=== PATIENT | male | born 1960 | race Caucasian/White ===

== ENCOUNTER → 2017-02-25 | Outpatient (CLI) | payer OTHER ==
--- NOTE | 2017-02-25 15:47 | DIAGNOSTIC IMAGING REPORT ---
LUMBAR SPINE MRI HISTORY: Pain. Neuropathy. BACK PAIN TECHNIQUE: Multiplanar multisequence MRI of the lumbar spine was performed without the use of contrast. COMPARISON: 05/02/2016 FINDINGS: For the purpose of the report the L5-S1 disc space will be located on axial image 27 of 30. Normal signal characteristics of the vertebral bodies as well as intervertebral disc. L1-L2: No significant central canal or neural foraminal narrowing. L2-L3: No significant central canal or neural foraminal narrowing. L3-L4: No significant central canal or neural foraminal narrowing. L4-L5: No significant central canal or neural foraminal narrowing. L5-S1: No significant central canal or neural foraminal narrowing. IMPRESSION: Normal study. No change from the prior exam. Electronically signed by: Terry Rodriguez M.D. 02/25/2017 3:46 PM Dictated Date/Time: 02/25/2017 3:44 PM
== END | disposition home or self-care (01) ==
LOC: C.MRIBC 14:38
PROVIDERS: ATTEND Physician Assistant
DX: M54.9 Dorsalgia, unspecified (principal)

== ENCOUNTER → 2017-04-10 | Outpatient (CLI) | payer OTHER ==
[2017-04-10 13:17] LABS: BASO % 0.6 %; BASO ABS # 0.03 K/uL (0-0.2); COMPLETE YES; EOS % 2.2 %; HEMATOCRIT 48.9 % (42-52); IG% 0.2 %; LYMPH % 33.8 %; LYMPH ABS # 1.69 K/uL (1.2-3.4); MEAN CELL VOLUME 91.9 fL (80-100); MEAN CORPUSCULAR HGB CONC 33.7 g/dl (32-36); MEAN PLATELET VOLUME 9.4 fL (7.4-10.4); NEUT % 54.2 %; PLATELET COUNT 172 K/uL (130-400); RED BLOOD COUNT 5.32 M/uL (4.7-6.1)
[2017-04-10 14:12] LABS: ALKALINE PHOSPHATASE 75 U/L (45-117); ALT/SGPT 129 U/L (12-78); AST/SGOT 52 U/L (15-37); BLOOD UREA NITROGEN 20 mg/dl (7-18); BUN/CREATININE RATIO 18.2 (10-20); CARBON DIOXIDE 29 mmol/L (21-32); CHLORIDE 105 mmol/L (98-107); CHOLESTEROL 156 mg/dl (0-200); GLUCOSE 94 mg/dl (70-99); HDL CHOLESTEROL 39 mg/dl; LDL CHOLESTEROL CALCULATED 91 mg/dl; POTASSIUM 3.9 mmol/L (3.5-5.1); SODIUM 141 mmol/L (136-145); TRIGLYCERIDES 131 mg/dl (0-150); VERY LOW DENSITY LIPOPROT CALC 26 mg/dl
[2017-04-10 18:24] LABS: CALCIUM 9.2 mg/dl (8.5-10.1)
== END | disposition home or self-care (01) ==
LOC: C.LABMFLN 09:46
PROVIDERS: ATTEND Family Medicine
DX: Z01.818 Encounter for other preprocedural examination (principal); E78.5 Hyperlipidemia, unspecified

== ENCOUNTER → 2017-04-20 | Outpatient (CLI) | payer OTHER | END | disposition home or self-care (01) | LOC: C.LABMFLN 15:07 | PROVIDERS: ATTEND Family Medicine | DX: R74.8 Abnormal levels of other serum enzymes (principal) ==

== ENCOUNTER → 2017-07-10 | Outpatient (CLI) | payer OTHER ==
[2017-07-10 18:12] LABS: BASO % 0.4 %; BASO ABS # 0.02 K/uL (0-0.2); COMPLETE YES; EOS % 2.6 %; HEMATOCRIT 45.8 % (42-52); IG% 0.2 %; LYMPH % 32.9 %; LYMPH ABS # 1.76 K/uL (1.2-3.4); MEAN CELL VOLUME 90.7 fL (80-100); MEAN CORPUSCULAR HEMOGLOBIN 31.7 pg (25-34); MEAN CORPUSCULAR HGB CONC 34.9 g/dl (32-36); MEAN PLATELET VOLUME 9.7 fL (7.4-10.4); MONO % 9.3 %; NEUT % 54.6 %; PLATELET COUNT 154 K/uL (130-400); RED BLOOD COUNT 5.05 M/uL (4.7-6.1); WHITE BLOOD COUNT 5.35 K/uL (4.8-10.8)
[2017-07-10 18:21] LABS: BLOOD UREA NITROGEN 25 mg/dl (7-18); BUN/CREATININE RATIO 24.9 (10-20); CALCIUM 9.4 mg/dl (8.5-10.1); CARBON DIOXIDE 31 mmol/L (21-32); CHLORIDE 103 mmol/L (98-107); GLUCOSE 100 mg/dl (70-99); POTASSIUM 3.7 mmol/L (3.5-5.1); SODIUM 141 mmol/L (136-145)
[2017-07-10 18:24] LABS: ALB/GLOB RATIO 1.1 (0.9-2); ALKALINE PHOSPHATASE 82 U/L (45-117); ALT/SGPT 43 U/L (12-78); AST/SGOT 19 U/L (15-37)
[2017-07-10 18:25] LABS: INR 1.1 (0.9-1.1); PARTIAL THROMBOPLASTIN RATIO 1.2; PROTHROMBIN TIME (PATIENT) 11.3 SECONDS (9.0-12.0)
== END | disposition home or self-care (01) ==
LOC: C.LABMFLN 15:20
PROVIDERS: ATTEND Physician Assistant
DX: M51.9 Unspecified thoracic, thoracolumbar and lumbosacral intervertebral disc disorder (principal)

== ENCOUNTER → 2017-09-29 | Outpatient (CLI) | payer OTHER ==
[2017-09-29 12:58] LABS: BASO % 0.7 %; BASO ABS # 0.04 K/uL (0-0.2); COMPLETE YES; EOS % 4.6 %; HEMATOCRIT 47.1 % (42-52); IG% 0.2 %; LYMPH % 36.7 %; LYMPH ABS # 1.98 K/uL (1.2-3.4); MEAN CELL VOLUME 93.1 fL (80-100); MEAN CORPUSCULAR HEMOGLOBIN 31.4 pg (25-34); MEAN CORPUSCULAR HGB CONC 33.8 g/dl (32-36); MEAN PLATELET VOLUME 10.1 fL (7.4-10.4); NEUT % 47.8 %; PLATELET COUNT 164 K/uL (130-400); RED BLOOD COUNT 5.06 M/uL (4.7-6.1); WHITE BLOOD COUNT 5.39 K/uL (4.8-10.8)
[2017-09-29 13:19] LABS: ALT/SGPT 47 U/L (12-78); AST/SGOT 18 U/L (15-37); BLOOD UREA NITROGEN 20 mg/dl (7-18); BUN/CREATININE RATIO 19.4 (10-20); CALCIUM 8.9 mg/dl (8.5-10.1); CARBON DIOXIDE 30 mmol/L (21-32); CHLORIDE 106 mmol/L (98-107); CHOLESTEROL 240 mg/dl (0-200); CREATININE 1.02 mg/dl (0.60-1.40); GLUCOSE 90 mg/dl (70-99); POTASSIUM 4.1 mmol/L (3.5-5.1); SODIUM 138 mmol/L (136-145)
[2017-09-29 13:25] LABS: ALB/GLOB RATIO 1.1 (0.9-2); ALKALINE PHOSPHATASE 71 U/L (45-117); CHOLESTEROL/HDL RATIO 5.3; HDL CHOLESTEROL 45 mg/dl; LDL CHOLESTEROL CALCULATED 171 mg/dl; PROSTATE SPECIFIC ANTIGEN 0.919 ng/ml (0.000-4.000); TRIGLYCERIDES 122 mg/dl (0-150); VERY LOW DENSITY LIPOPROT CALC 24 mg/dl
== END | disposition home or self-care (01) ==
LOC: C.LABMFLN 07:30
PROVIDERS: ATTEND Family Medicine
DX: R74.8 Abnormal levels of other serum enzymes (principal); M54.16 Radiculopathy, lumbar region; D64.9 Anemia, unspecified; Z12.5 Encounter for screening for malignant neoplasm of prostate

== ENCOUNTER → 2017-12-14 | Outpatient (CLI) | payer BC ==
[2017-12-14 18:00] LABS: BASO % 0.4 %; BASO ABS # 0.02 K/uL (0-0.2); EOS % 2.3 %; EOS ABS # 0.11 K/uL (0-0.5); HEMATOCRIT 50.5 % (42-52); IG# 0.01 K/uL (0.00-0.02); LYMPH % 31.2 %; LYMPH ABS # 1.47 K/uL (1.2-3.4); MEAN CELL VOLUME 95.5 fL (80-100); MEAN CORPUSCULAR HEMOGLOBIN 32.1 pg (25-34); MEAN CORPUSCULAR HGB CONC 33.7 g/dl (32-36); MEAN PLATELET VOLUME 10.1 fL (7.4-10.4); MONO % 7.2 %; MONO ABS # 0.34 K/uL (0.11-0.59); NEUT % 58.7 %; NEUT ABS # 2.76 K/uL (1.4-6.5); PLATELET COUNT 185 K/uL (130-400); RED CELL DISTRIBUTION WIDTH CV 13.1 % (11.5-14.5); RED CELL DISTRIBUTION WIDTH SD 45.2 fL (36.4-46.3); WHITE BLOOD COUNT 4.71 K/uL (4.8-10.8)
[2017-12-14 18:17] LABS: ALBUMIN 4.1 gm/dl (3.4-5.0); ALT/SGPT 98 U/L (12-78); AST/SGOT 37 U/L (15-37); BLOOD UREA NITROGEN 19 mg/dl (7-18); CALCIUM 9.1 mg/dl (8.5-10.1); CARBON DIOXIDE 29 mmol/L (21-32); GLUCOSE 88 mg/dl (70-99); LIPASE 188 U/L (73-393); POTASSIUM 4.2 mmol/L (3.5-5.1); SODIUM 139 mmol/L (136-145)
[2017-12-14 18:20] LABS: ALKALINE PHOSPHATASE 65 U/L (45-117); TOTAL PROTEIN 7.5 gm/dl (6.4-8.2)
== END | disposition home or self-care (01) ==
LOC: C.LABMFLN 10:47
PROVIDERS: ATTEND Family Medicine
DX: R10.12 Left upper quadrant pain (principal); R35.0 Frequency of micturition

== ENCOUNTER → 2017-12-16 | Outpatient (CLI) | payer BC ==
--- NOTE | 2017-12-16 10:42 | DIAGNOSTIC IMAGING REPORT ---
ABDOMEN LIMITED (US) HISTORY: Pain. Nausea. R10.12 Abdominal pain, acute, left upper quadrantattn RUQ. Wed i. COMPARISON: 08/17/2015 FINDINGS: Pancreas: The pancreas demonstrates a normal echotexture. Liver: Multiple 9 hemangiomas. These are unchanged as compared to several prior exams. Gallbladder: No gallbladder wall thickening. No gallstones. CBD: 5 mm Right kidney: No hydronephrosis. IMPRESSION: 1. Multiple benign hepatic hemangiomas unchanged compared to several prior exams. 2. Study is otherwise normal. The above report was generated using voice recognition software. It may contain grammatical, syntax or spelling errors. Electronically signed by: Terry Rodriguez M.D. 12/16/2017 10:41 AM Dictated Date/Time: 12/16/2017 10:38 AM
--- NOTE | 2017-12-16 11:02 | DIAGNOSTIC IMAGING REPORT ---
GI SERIES W/AIR ROUTINE CLINICAL HISTORY: R10.12 Abdominal pain, acute, left upper quadrantWed if possible COMPARISON STUDY: None FLUOROSCOPY TIME: 1. Minutes. FINDINGS: Patient initiated the swallowing function well. Esophagus is normal in course and caliber. There are findings of minimal gastroesophageal reflux. Size and configuration of the stomach are normal. The duodenal bulb shows moderate irritability. There is no definite ulceration. There is mild scarring of the pyloric channel. There is no evidence for gastric outlet obstruction. Duodenal sweep and proximal small bowel appear unremarkable. IMPRESSION: 1. Mild gastroesophageal reflux. 2. Irritability of the pyloric channel and duodenal bulb suggesting moderate duodenitis/scarring from prior peptic change.. 3. Remainder of the study is unremarkable. The above report was generated using voice recognition software. It may contain grammatical, syntax or spelling errors. Electronically signed by: Terry Rodriguez M.D. 12/16/2017 11:01 AM Dictated Date/Time: 12/16/2017 10:56 AM
== END | disposition home or self-care (01) ==
LOC: C.RAD 09:25
PROVIDERS: ATTEND Family Medicine
DX: R10.12 Left upper quadrant pain (principal)

== ENCOUNTER → 2018-01-06 | Outpatient (CLI) | payer BC ==
--- NOTE | 2018-01-06 13:41 | DIAGNOSTIC IMAGING REPORT ---
(TESTICULAR) SCROTUM-CONT HISTORY: Pain. Nausea. N50.819 Testes [id number] COMPARISON: None. FINDINGS: Right testis: Maximum dimension 5.5 cm. Uniform echogenicity. Several microcalcifications. Small right hydrocele. Left testis: Maximum dimension 5.5 cm. Uniform echogenicity. Several microcalcifications. Small left varicocele. IMPRESSION: 1. Mild testicular microlithiasis. 2. Otherwise normal testes with normal vascular flow bilaterally. 3. Small right hydrocele. 4. Small left varicocele. The above report was generated using voice recognition software. It may contain grammatical, syntax or spelling errors. Electronically signed by: Terry Rodriguez M.D. 01/06/2018 1:39 PM Dictated Date/Time: 01/06/2018 1:38 PM
== END | disposition home or self-care (01) ==
LOC: C.ULTR 12:39
PROVIDERS: ATTEND Urology
DX: N50.819 Testicular pain, unspecified (principal)

== ENCOUNTER → 2018-01-11 | Outpatient (CLI) | payer BC ==
[~2018-01-11] MED LIST: OPTIRAY 320 IV PRN
--- NOTE | 2018-01-11 09:58 | DIAGNOSTIC IMAGING REPORT ---
ABD/PELVIS IV AND ORAL CONT CLINICAL HISTORY: 57 years-old Male presenting with R10.9 Right sided abdominal [id number]. TECHNIQUE: Multidetector CT of the abdomen and pelvis was performed after the administration of oral and intravenous contrast. IV contrast: 93 mL of Optiray 320. A dose lowering technique was used consistent with the principles of ALARA (as low as reasonably achievable). COMPARISON: Ultrasound from 12/16/2017. CT DOSE (mGy.cm): The estimated cumulative dose is 679.76 mGycm. FINDINGS: Access Control Specialist topogram: Unremarkable. Lung bases: Minimal basilar opacities, likely atelectasis. Normal heart size. No pericardial or pleural effusion. Liver: Normal morphology. Multiple irregular hypodense lesions with peripheral nodular enhancement in several of the lesions. This suggests benign hemangiomas though these are indeterminate on this single phase examination. Patent hepatic vasculature. Biliary: No intrahepatic or extrahepatic biliary ductal dilatation. Normal gallbladder. Pancreas: Normal parenchyma. Mild pancreatic ductal prominence diffusely. No gross evidence of a pancreatic head mass. Spleen: Normal. Adrenal glands: Normal. Kidneys and ureters: Normal. No hydronephrosis. Mild urothelial thickening of the ureters, nonspecific. Bladder: Normal. Pelvic organs: Prostate enlargement likely secondary to benign prostatic hyperplasia. Bowel: Moderate stool burden throughout normal caliber colon. The appendix is normal. No bowel obstruction. Peritoneal cavity: No free fluid or intraperitoneal gas. Lymph nodes: No enlarged lymph nodes in the abdomen or pelvis. Vasculature: Aorta and IVC patent and normal in caliber. Abdominal wall: Fat-containing right inguinal hernia. Varicocele may be present on the left and possibly also on the right. Musculoskeletal: Normal. IMPRESSION: 1. No acute intra-abdominal pathology. No appendicitis. 2. Moderate stool burden suggest constipation. 3. Multiple indeterminate liver lesions, which are favored to represent benign hemangiomas. If the patient has a history of hepatocellular disease or known malignancy, further evaluation with dedicated liver protocol CT or MR (Gadavist) recommended. Electronically signed by: Casper Cabrera M.D. 01/11/2018 9:57 AM Dictated Date/Time: 01/11/2018 9:50 AM
== END | disposition home or self-care (01) ==
LOC: C.CTS 09:07
PROVIDERS: ATTEND Family Medicine
DX: R10.9 Unspecified abdominal pain (principal); K59.00 Constipation, unspecified

== ENCOUNTER → 2018-01-29 | Outpatient (CLI) | payer BC ==
[2018-01-29 13:02] LABS: BASO % 0.3 %; BASO ABS # 0.02 K/uL (0-0.2); EOS % 2.6 %; EOS ABS # 0.16 K/uL (0-0.5); HEMATOCRIT 52.1 % (42-52); HEMOGLOBIN 17.7 g/dL (14.0-18.0); LYMPH % 28.1 %; LYMPH ABS # 1.72 K/uL (1.2-3.4); MEAN CELL VOLUME 92.9 fL (80-100); MEAN CORPUSCULAR HEMOGLOBIN 31.6 pg (25-34); MEAN PLATELET VOLUME 10.5 fL (7.4-10.4); MONO % 9.3 %; MONO ABS # 0.57 K/uL (0.11-0.59); NEUT % 59.7 %; NEUT ABS # 3.65 K/uL (1.4-6.5); PLATELET COUNT 185 K/uL (130-400); RED CELL DISTRIBUTION WIDTH CV 12.8 % (11.5-14.5); RED CELL DISTRIBUTION WIDTH SD 43.9 fL (36.4-46.3); WHITE BLOOD COUNT 6.12 K/uL (4.8-10.8)
[2018-01-29 15:27] LABS: ALT/SGPT 52 U/L (12-78); BLOOD UREA NITROGEN 20 mg/dl (7-18); CALCIUM 9.5 mg/dl (8.5-10.1); CARBON DIOXIDE 28 mmol/L (21-32); CHOLESTEROL 148 mg/dl (0-200); CREATININE 1.14 mg/dl (0.60-1.40); GLUCOSE 89 mg/dl (70-99); POTASSIUM 4.7 mmol/L (3.5-5.1); SODIUM 141 mmol/L (136-145)
[2018-01-29 15:38] LABS: ALKALINE PHOSPHATASE 74 U/L (45-117); AST/SGOT 22 U/L (15-37); LDL CHOLESTEROL CALCULATED 93 mg/dl; TOTAL PROTEIN 7.6 gm/dl (6.4-8.2)
== END | disposition home or self-care (01) ==
LOC: C.LABMFLN 09:45
PROVIDERS: ATTEND Family Medicine
DX: R10.11 Right upper quadrant pain (principal); R74.8 Abnormal levels of other serum enzymes; R93.2 Abnormal findings on diagnostic imaging of liver and biliary tract; R63.4 Abnormal weight loss

== ENCOUNTER → 2018-02-10 | Outpatient (CLI) | payer BC ==
[~2018-02-10] MED LIST changes: +GADAVIST IV PRN; -OPTIRAY 320 IV PRN
--- NOTE | 2018-02-10 21:49 | DIAGNOSTIC IMAGING REPORT ---
LUMBAR SPINE COMBINATION CLINICAL HISTORY: 57 years-old Male presenting with LOW BACK PAIN,L4 NERVE DAMAGE/LEG NUMBNESS, lumbar pain radiating into the left leg, prior lumbar surgery in June. TECHNIQUE: Multisequence, multiplanar MR imaging of the lumbar spine was performed before and after the administration of intravenous contrast. IV contrast: 9 mL of Gadavist. COMPARISON: CT of abdomen pelvis from 01/11/2018. FINDINGS: Localizer images: Unremarkable. Normal lumbar lordosis. Vertebral bodies maintain normal height, alignment, and bone marrow signal intensity. Intervertebral discs preserved. No advanced degenerative change. Minimal disc bulge evident at L2-3 without significant spinal canal stenosis. Slight eccentricity of the disc bulge at L2-3 results in greater effacement of the left neural foramen and far lateral aspect of the left neural foramen. This results in mild left neural foraminal narrowing. This also may abut the exiting left L2 nerve root. Minimal right neural foraminal narrowing noted at this level as well. An annular fissure is evident at L4-5 on the left. Similar though less severe findings suggested at L5-S1 on the left. The spinal cord ends in good position at the inferior endplate of L1. Cauda equina normal morphology. Paraspinal soft tissues within normal limits. Slight increased enhancement suggested at the left neural foramen of L2-3 (series 7 image 12). No other sites of abnormal enhancement on postcontrast imaging. No epidural collection. IMPRESSION: Mild left neural foraminal narrowing secondary to eccentric disc bulge at L2-3 with resultant abutment of the exiting left L2 nerve root. Annular fissures suggested at several levels most notably at L4-5 on the left. Electronically signed by: Casper Cabrera M.D. 02/10/2018 9:47 PM Dictated Date/Time: 02/10/2018 9:40 PM
== END | disposition home or self-care (01) ==
LOC: C.MRI 19:35
PROVIDERS: ATTEND Family Medicine
DX: M54.16 Radiculopathy, lumbar region (principal); M96.1 Postlaminectomy syndrome, not elsewhere classified; M47.896 Other spondylosis, lumbar region; M51.25 Other intervertebral disc displacement, thoracolumbar region

== ENCOUNTER → 2018-05-17 | Outpatient (CLI) | payer BC ==
[2018-05-17 13:03] LABS: BASO % 0.9 %; BASO ABS # 0.04 K/uL (0-0.2); EOS % 3.2 %; EOS ABS # 0.15 K/uL (0-0.5); HEMATOCRIT 47.4 % (42-52); HEMOGLOBIN 15.8 g/dL (14.0-18.0); IG# 0.01 K/uL (0.00-0.02); LYMPH ABS # 1.45 K/uL (1.2-3.4); MEAN CELL VOLUME 93.9 fL (80-100); MEAN CORPUSCULAR HEMOGLOBIN 31.3 pg (25-34); MEAN CORPUSCULAR HGB CONC 33.3 g/dl (32-36); MEAN PLATELET VOLUME 10.7 fL (7.4-10.4); MONO % 8.3 %; MONO ABS # 0.39 K/uL (0.11-0.59); NEUT % 56.4 %; NEUT ABS # 2.64 K/uL (1.4-6.5); PLATELET COUNT 176 K/uL (130-400); RED CELL DISTRIBUTION WIDTH CV 13.4 % (11.5-14.5); RED CELL DISTRIBUTION WIDTH SD 46.3 fL (36.4-46.3); WHITE BLOOD COUNT 4.68 K/uL (4.8-10.8)
[2018-05-17 13:50] LABS: BLOOD UREA NITROGEN 19 mg/dl (7-18); CARBON DIOXIDE 28 mmol/L (21-32); CREATININE 0.99 mg/dl (0.60-1.40); GLUCOSE 96 mg/dl (70-99); POTASSIUM 4.7 mmol/L (3.5-5.1); SODIUM 142 mmol/L (136-145)
== END | disposition home or self-care (01) ==
LOC: C.LABMFLN 08:40
PROVIDERS: ATTEND Neurological Surgery
DX: Z01.818 Encounter for other preprocedural examination (principal); R74.8 Abnormal levels of other serum enzymes; M54.16 Radiculopathy, lumbar region; M51.9 Unspecified thoracic, thoracolumbar and lumbosacral intervertebral disc disorder